=== PATIENT | male | born 1980 | race Caucasian/White ===

== ENCOUNTER 2022-12-06 05:20 | Day surgery (SDC) | payer BC ==
[~2022-12-06 05:20] MED LIST: Sodium Chloride 0.9% 10 ML Syringe FLUSH SCH
[2022-12-06] MEDS ORDERED: fentaNYL 100 MCG/2 ML SDV IV ONE ×3 (05:21→06:27)
[2022-12-06] MEDS ORDERED: Midazolam 1 MG/ML 2 ML SDV IV ONE ×8 (05:21→06:37)
[2022-12-06] MEDS ORDERED: Sodium Chloride 0.9% 10 ML Syringe FLUSH PRN (05:30)
[2022-12-06] MEDS ORDERED: Dextrose 5%-0.45% NaCl 1,000 ML IV SCH (05:30)
[2022-12-06] MEDS ORDERED: Midazolam 1 MG/ML 2 ML SDV ONE (06:09)
[2022-12-06] MEDS ORDERED: fentaNYL 100 MCG/2 ML SDV ONE (06:10)
== END 2022-12-06 08:50 | disposition home or self-care (01) ==
LOC: DL.ENDO 05:20
PROVIDERS: ATTEND Internal Medicine Gastroenterology
DX: D12.4 Benign neoplasm of descending colon (principal); Z98.890 Other specified postprocedural states
CPT/HCPCS: J2250; J3010; J7042